=== PATIENT | male | born 2000 | race Caucasian/White ===

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

== ENCOUNTER 2023-06-11 22:17 | Emergency (ER) | payer OTHER ==
[~2023-06-11] VITALS: Ht 180.3 cm; Wt 86.2 kg
[~2023-06-11 22:17] MED LIST changes: +PRED20 PO
[2023-06-11 22:43] VITALS: BP 145/86
== END 2023-06-11 23:04 | disposition home or self-care (01) ==
LOC: ER 22:17
DX: S61.214A Laceration without foreign body of right ring finger without damage to nail, initial encounter (principal); J45.909 Unspecified asthma, uncomplicated; W26.0XXA Contact with knife, initial encounter; Z79.52 Long term (current) use of systemic steroids; Z79.899 Other long term (current) drug therapy
CPT/HCPCS: 12001; 99283-25

== ENCOUNTER → 2024-05-05 | Outpatient (CLI) | payer OTHER | LOC: LAB SHORT 13:47 | DX: J02.9 Acute pharyngitis, unspecified (principal) | CPT/HCPCS: 87081 ==

== ENCOUNTER 2024-06-09 21:53 | Emergency (ER) | payer OTHER ==
[~2024-06-09] VITALS: Ht 170.2 cm; Wt 63.5 kg
[2024-06-09 22:06] VITALS: BP 141/84
== END 2024-06-09 22:40 | disposition home or self-care (01) ==
LOC: ER 21:53
DX: S61.411A Laceration without foreign body of right hand, initial encounter (principal); F17.200 Nicotine dependence, unspecified, uncomplicated; J45.909 Unspecified asthma, uncomplicated; W22.8XXA Striking against or struck by other objects, initial encounter; Z79.52 Long term (current) use of systemic steroids; Z79.899 Other long term (current) drug therapy
CPT/HCPCS: 12002; 99282-25